=== PATIENT | male | born 1985 | race Caucasian/White ===

== ENCOUNTER 2017-11-12 07:49 | Inpatient (IN) | payer MEDICAID ==
[2017-11-12 08:39] LABS: ADD MAN DIFF? NO
[2017-11-12 08:41] LABS: WHITE BLOOD COUNT 6.4 10^3/ul (4.8-10.8)
[2017-11-12 08:41] LABS: BASOPHILS % 0.3 % (0.0-2.0); EOSINOPHILS # 0.1 10^3/ul (0.0-0.5); EOSINOPHILS % 1.1 % (0.0-7.0); HEMATOCRIT 44.3 % (42.0-52.0); HEMOGLOBIN 14.6 g/dl (14.0-18.0); LYMPHOCYTES # 1.5 10^3/ul (0.8-2.9); LYMPHOCYTES % 23.5 % (15.0-51.0); MEAN CORPUSCULAR HEMOGLOBIN 28.1 pg (29.0-33.0); MEAN CORPUSCULAR VOLUME 85.4 fl (82.0-101.0); MEAN PLATELET VOLUME 10.5 fl (7.4-10.4); MONOCYTE # 0.4 10^3/ul (0.3-0.9); MONOCYTES % 6.8 % (0.0-11.0); NEUTROPHIL # 4.3 10^3/ul (1.6-7.5); NEUTROPHILS % 67.4 % (39.0-77.0); PLATELET COUNT 196 10^3/UL (140-415); RED BLOOD COUNT 5.19 10^6/ul (4.70-6.10); RED CELL DISTRIBUTION WIDTH 12.5 % (11.5-14.5)
[2017-11-12 09:02] LABS: ANION GAP 12 (8-16); BLOOD UREA NITROGEN 11 mg/dl (7-20); CALCIUM 9.1 mg/dl (8.4-10.2); CARBON DIOXIDE 23 mmol/L (21-31); CHLORIDE 112 mmol/L (97-110); CREATININE 0.82 mg/dl (0.61-1.24); GLUCOSE 117 mg/dl (70-220); INR 0.93; POTASSIUM 4.2 mmol/L (3.5-5.1); PROTIME 12.5 Sec (11.9-14.9); SODIUM 143 mmol/L (135-144)
[2017-11-12 09:03] LABS: PARTIAL THROMBOPLASTIN TIME 26.4 Sec (25.0-35.0)
[2017-11-12] MEDS: SOD CHLORIDE 0.9% 1,000 ML IV ×2 (09:58→15:00)
[2017-11-12] MEDS: ASPIRIN 81 MG TAB PO (09:58)
[2017-11-12] MEDS: NITROGLYCERIN 2% 1 GM OINT PKT TD (09:59)
[2017-11-12] MEDS ORDERED: NITROGLYCERIN (SL) 0.4 MG TAB SL (10:00)
[2017-11-12] MEDS: SOD CHLORIDE 0.9% 100 ML (10:38)
[2017-11-12] MEDS: IOHEXOL 100 ML (10:39)
[2017-11-12] MEDS ORDERED: ONDANSETRON 4 MG INJ IV (11:00)
[2017-11-12] MEDS ORDERED: ACETAMINOPHEN 325 MG TAB PO ×2 (11:00→12:00)
[2017-11-12] MEDS ORDERED: HEPARIN 25000 UNITS/250 ML 250 ML IV (12:00)
[2017-11-12] MEDS ORDERED: HEPARIN 1000 UNITS/ML 10 ML INJ IV ×2 (12:00)
[2017-11-12] MEDS ORDERED: HYDROCODONE/APAP (5/325) TAB PO (12:00)
[2017-11-12] MEDS ORDERED: NACL 0.9% 3 ML SYG IV (12:00)
[2017-11-12] MEDS: ATORVASTATIN 80 MG TAB PO (13:06)
[2017-11-12] MEDS: ENOXAPARIN 100 MG/ML SYG SC ×2 (13:07→22:36)
[2017-11-12] MEDS ORDERED: FENTAnyl 50 MCG/ML VIAL (14:16)
[2017-11-12] MEDS ORDERED: VERAPAMIL 5 MG INJ (14:16)
[2017-11-12] MEDS ORDERED: MIDAZOLAM 1 MG/ML 2 ML INJ (14:16)
[2017-11-12] MEDS ORDERED: HEPARIN 1000 UNITS/ML 10 ML INJ (14:16)
[2017-11-12] MEDS ORDERED: NITROGLYCERIN (IC) 100 MCG/ML INJ (14:17)
[2017-11-12] MEDS ORDERED: IODIXANOL LOCM 100 ML BTL (14:17)
[2017-11-12 19:50] LABS: CREATINE KINASE 241 IU/L (23-200)
[2017-11-12 20:02] LABS: CK INDEX 4.6
[2017-11-13 01:44] LABS: CREATINE KINASE 165 IU/L (23-200)
[2017-11-13 01:57] LABS: CK INDEX 4.5; CK-MB 7.41 ng/ml (0.0-2.4)
[2017-11-13 07:58] LABS: ADD MAN DIFF? NO
[2017-11-13 08:05] LABS: BASOPHILS % 0.3 % (0.0-2.0); EOSINOPHILS # 0.1 10^3/ul (0.0-0.5); EOSINOPHILS % 1.2 % (0.0-7.0); HEMOGLOBIN 13.7 g/dl (14.0-18.0); LYMPHOCYTES % 30.1 % (15.0-51.0); MEAN CORPUSCULAR HEMOGLOBIN 27.5 pg (29.0-33.0); MEAN CORPUSCULAR HGB CONC 32.6 g/dl (32.0-37.0); MEAN CORPUSCULAR VOLUME 84.3 fl (82.0-101.0); MONOCYTE # 0.4 10^3/ul (0.3-0.9); MONOCYTES % 5.3 % (0.0-11.0); NEUTROPHIL # 4.2 10^3/ul (1.6-7.5); NEUTROPHILS % 62.7 % (39.0-77.0); PLATELET COUNT 207 10^3/UL (140-415); RED BLOOD COUNT 4.98 10^6/ul (4.70-6.10); RED CELL DISTRIBUTION WIDTH 12.6 % (11.5-14.5)
[2017-11-13 08:05] LABS: WHITE BLOOD COUNT 6.7 10^3/ul (4.8-10.8)
[2017-11-13 08:19] LABS: HEMOGLOBIN A1C 5.7 % (0-5.9)
[2017-11-13 08:27] LABS: CHOLESTEROL 162 mg/dl (100-200)
[2017-11-13 08:27] LABS: ANION GAP 11 (8-16); BLOOD UREA NITROGEN 12 mg/dl (7-20); CARBON DIOXIDE 25 mmol/L (21-31); CHLORIDE 108 mmol/L (97-110); CHOL/HDL RATIO 4.9 RATIO; CREATININE 0.83 mg/dl (0.61-1.24); GLUCOSE 100 mg/dl (70-220); HDL CHOLESTEROL 33 mg/dl (28-63); LDL CHOLESTEROL,CALCULATED 87 mg/dl; POTASSIUM 3.9 mmol/L (3.5-5.1); SODIUM 140 mmol/L (135-144); TRIGLYCERIDES 211 mg/dl (0-149)
[2017-11-13] MEDS: ENOXAPARIN 100 MG/ML SYG SC (09:17)
[2017-11-13] MEDS: IBUPROFEN 800 MG TAB PO (12:33)
== END 2017-11-13 15:45 | disposition home or self-care (01) | DRG 280 ==
LOC: FTE 07:49 → MS3 10:52 → MS4 16:48
PROC: 4A023N7 Measurement of Cardiac Sampling and Pressure, Left Heart, Percutaneous Approach (ICD-10-PCS; principal; 2017-11-12 14:00)
PROC: B211YZZ Fluoroscopy of Multiple Coronary Arteries using Other Contrast (ICD-10-PCS; 2017-11-12 14:00)
PROC: B215YZZ Fluoroscopy of Left Heart using Other Contrast (ICD-10-PCS; 2017-11-12 14:00)
DX: I21.4 Non-ST elevation (NSTEMI) myocardial infarction (principal); I40.0 Infective myocarditis; E78.5 Hyperlipidemia, unspecified; B97.89 Other viral agents as the cause of diseases classified elsewhere; R73.03 Prediabetes; E66.9 Obesity, unspecified; Z68.36 Body mass index [BMI] 36.0-36.9, adult
CPT/HCPCS: 71045; 71275; 80048; 80061; 82550; 82553; 83036; 84484; 85025; 85610; 85730; 93005; 93306; 93458; 99291-25